=== PATIENT | male | born 1985 | race Hispanic/Latino ===

== ENCOUNTER 2017-12-17 06:35 | Emergency (ER) | payer BC, OTHER ==
[2017-12-17 06:35] VITALS: BMI 25.7
[2017-12-17 07:03] VITALS: RESP 17; O2SAT 100
[2017-12-17] MEDS ORDERED: Iohexol 240 (50 ml) PO ONE (07:32)
[2017-12-17] MEDS ORDERED: Sodium Chloride 0.9% 1,000 ML IV STA (07:32)
--- NOTE | 2017-12-17 07:49 | ED PDOC ---
HPI: Abdomen Time Seen by Provider: 12/17/17 07:08 Chief Complaint (Nursing): Abdominal Pain Chief Complaint (Provider): Abdominal Pain History Per: Patient History/Exam Limitations: no limitations Onset/Duration Of Symptoms: Hrs (3-4hrs), Intermittent Episodes Current Symptoms Are (Timing): Still Present Location Of Pain/Discomfort: Other (umbilicus area ) Quality Of Discomfort: Sharp Associated Symptoms: Nausea. denies: Fever, Diarrhea Last Bowel Movement: Today (2 bowel movement) Additional Complaint(s): 32 year old male presents to the ED complaining of abdominal pain onset 3-4 hours ago localized around the umbilicus area with associated symptoms of nausea. Reports the pain is sharp and patient feels uncomfortable. States of intermittent, chronic gastrointestinal distress and denies any evaluation ongoing for some time but the pain feels different today. Also states in the morning he had two bowel movements. Denies vomiting or diarrhea. PMD: Provider TBD Past Medical History Reviewed: Historical Data, Nursing Documentation, Vital Signs Vital Signs: Last Vital Signs Temp 97.4 F L 12/17/17 06:50 Pulse 61 12/17/17 06:50 Resp 17 12/17/17 06:50 BP 123/75 12/17/17 06:50 Pulse Ox 100 12/17/17 07:57 - Medical History PMH: Asthma - Surgical History Surgical History: No Surg Hx - Family History Family History: States: Unknown Family Hx - Social History Current smoker - smoking cessation education provided: No Drugs: Denies - Home Medications Home Medications: Ambulatory Orders Medication Instructions Recorded No Known Home Med 12/17/17 - Allergies Allergies/Adverse Reactions: Allergies Allergy/AdvReac Type Severity Reaction Status Date / Time azithromycin Allergy RASH Verified 12/17/17 07:52 Review of Systems ROS Statement: Except As Marked, All Systems Reviewed And Found Negative Gastrointestinal: Positive for: Nausea, Abdominal Pain. Negative for: Vomiting , Diarrhea Physical Exam - Reviewed Nursing Documentation Reviewed: Yes Vital Signs Reviewed: Yes - Physical Exam Appears: Positive for: Non-toxic, No Acute Distress Head Exam: Positive for: ATRAUMATIC, NORMAL INSPECTION, NORMOCEPHALIC Skin: Positive for: Normal Color, Warm, Dry Eye Exam: Positive for: EOMI, Normal appearance, PERRL ENT: Positive for: Normal ENT Inspection Neck: Positive for: Normal, Painless ROM, Supple. Negative for: Decreased ROM Cardiovascular/Chest: Positive for: Regular Rate, Rhythm. Negative for: Murmur Respiratory: Positive for: Normal Breath Sounds. Negative for: Decreased Breath Sounds, Accessory Muscle Use, Respiratory Distress Gastrointestinal/Abdominal: Positive for: Tenderness (periumbilical and RLQ) Back: Positive for: Normal Inspection. Negative for: L CVA Tenderness, R CVA Tenderness Extremity: Positive for: Normal ROM. Negative for: Tenderness, Pedal Edema, Deformity Neurologic/Psych: Positive for: Alert, Oriented (x3). Negative for: Motor/ Sensory Deficits - Laboratory Results Result Diagrams: 12/17/17 07:50 12/17/17 07:50 - ECG O2 Sat by Pulse Oximetry: 100 (RA) Pulse Ox Interpretation: Normal Medical Decision Making Medical Decision Making: Time: 730 Initial Impression: Abdominal Pain Differential Diagnosis includes but is not limited to: CT of the abdomen r/o internal hernia Initial Plan: --ABD Pelvis PO & IV Contrast [CT] --CMP --Lipase --CBC w/ differential --Normal Saline 1,000 mls/ hr --Omnipaque 240 (50ml) --Toradol 15mg --Urinalysis --Reevaluation labs reviewed and clinically unremarkable Accession No. : [id number] Patient Name / ID : MILO BASSETT / [id number] Exam Date : 12/17/2017 10:33:14 ( Approved ) Study Comment : Sex / Age : M / 32Y Creator : Edison Brown MD Dictator : Edison Borwn MD Hot Worker : Leaf Stamper : Edison Brown MD Approver2 : Report Date : 12/17/2017 10:59:44 My Comment : PROCEDURE: CT Abdomen and Pelvis with contrast HISTORY: sophie-umbilical pain, nausea COMPARISON: None. TECHNIQUE: Contrast dose: 95 mL Omnipaque 300 Radiation dose: Total exam DLP = 694.8 mGy-cm. This CT exam was performed using one or more of the following dose reduction techniques: Automated exposure control, adjustment of the mA and/or kV according to patient size, and/or use of iterative reconstruction technique. FINDINGS: LOWER THORAX: Unremarkable. LIVER: Unremarkable. No gross lesion or ductal dilatation. GALLBLADDER AND BILE DUCTS: Unremarkable. PANCREAS: Unremarkable. No gross lesion or ductal dilatation. SPLEEN: Unremarkable. ADRENALS: Unremarkable. No mass. KIDNEYS AND URETERS: Unremarkable. No hydronephrosis. No solid mass. VASCULATURE: Unremarkable. No aortic aneurysm. BOWEL: Unremarkable. No obstruction. No gross mural thickening. APPENDIX: Thick-walled appendix that fills with contrast. No periappendiceal inflammatory change. PERITONEUM: Small fat containing left inguinal hernia. No free fluid. No free air. LYMPH NODES: Unremarkable. No enlarged lymph nodes. BLADDER: Unremarkable. REPRODUCTIVE: Nonspecific 1.1 x 0.5 cm hypodensity within the central prostrate. BONES: No acute fracture. OTHER FINDINGS: None. IMPRESSION: No definite acute abdominal pelvic pathology. Thick walled appendix that fills with contrast. No periappendiceal inflammatory change. Nonspecific 1.5 x 0.5 cm hypodensity within the central prostate, possibly representing prostatic cyst, or possibly urethral diverticulum. All results discussed. 1210pm Patient feels better and RLQ is nontender. Discussed potential for very early appendicitis but without pain and currently is hungry, will DC to have strict return instructions if any pain/fever/ appetite loss/ vomiting returns. Given followup for GI given chronic intermittent GI distress and urology for prostate cyst. All questions answered and indications for return again discussed. Scribe Attestation: Documented by Latonya Baca, acting as a scribe for Nathan Smith III, DO Provider Scribe Attestation: All medical record entries made by the Scribe were at my direction and personally dictated by me. I have reviewed the chart and agree that the record accurately reflects my personal performance of the history, physical exam, medical decision making, and the department course for this patient. I have also personally directed, reviewed, and agree with the discharge instructions and disposition. Disposition - Clinical Impression Clinical Impression: Abdominal pain, Cyst of prostate - Patient ED Disposition Is Patient to be Admitted: No Counseled Patient/Family Regarding: Studies Performed, Diagnosis, Need For Followup - Disposition Referrals: Viji Rose MD [Medical Doctor] - [facility] [Outside] Mika Noland MD [Staff Provider] - Disposition Time: 12:15 Condition: STABLE Additional Instructions: Followup with GI doctor for further testing. Return to ER for any worse or new symptoms. Instructions: Acute Abdomen (Belly Pain), Adult (DC) Forms: [facility] (Danish)
[2017-12-17 07:59] LABS: BASO # 0.1 K/uL (0.0-0.2); EOS # 0.4 K/uL (0.0-0.7); EOS % 7.1 % (0.0-4.0); HEMOGLOBIN 13.9 g/dL (12.0-18.0); LYMPH % 33.8 % (20.0-40.0); MEAN CELL VOLUME 85.5 fl (80.0-94.0); MEAN CORPUSCULAR HEMOGLOBIN 28.8 pg (27.0-31.0); MEAN CORPUSCULAR HGB CONC 33.6 g/dL (33.0-37.0); MEAN PLATELET VOLUME 8.1 fl (7.2-11.7); MONO # 0.5 K/uL (0.0-0.8); MONO % 8.5 % (0.0-10.0); NEUT # 2.9 K/uL (1.8-7.0); NEUT % 49.6 % (50.0-75.0); NRBC % 0.1 % (0.0-0.0); RBC 4.82 Mil/uL (4.40-5.90); RED CELL DISTRIBUTION WIDTH 12.9 % (11.5-14.5); WHITE BLOOD COUNT 5.9 K/uL (4.8-10.8)
[2017-12-17 08:12] LABS: ALB/GLOB RATIO 1.4 (1.0-2.1); ALBUMIN 4.3 g/dL (3.5-5.0); ALT/SGPT 49 U/L (21-72); AST/SGOT 25 U/L (17-59); BLOOD UREA NITROGEN 20 mg/dl (9-20); CALCIUM 9.6 mg/dL (8.4-10.2); GFR AFRICAN-AMERICAN > 60; GFR NON-AFRICAN AMERICAN > 60; LIPASE 190 U/L (23-300)
[2017-12-17 09:41] LABS: SQUAMOUS EPITHIAL < 1 /hpf (0-5); URINE BILIRUBIN NEGATIVE (NEGATIVE); URINE BLOOD NEGATIVE (NEGATIVE); URINE CLARITY CLEAR (Clear); URINE COLOR STRAW (YELLOW); URINE GLUCOSE (UA) NEG (Normal); URINE LEUKOCYTE ESTERASE NEG Leu/uL (Negative); URINE PROTEIN NEGATIVE (NEGATIVE); URINE UROBILINOGEN 0.2-1.0 mg/dL (0.2-1.0)
[2017-12-17] MEDS ORDERED: Iohexol 300 100 ML IJ ONE (10:24)
[2017-12-17] MEDS ORDERED: Sodium Chloride 0.9% 100 ML ONE (10:25)
--- NOTE | 2017-12-17 11:01 | CT ---
PROCEDURE: CT Abdomen and Pelvis with contrast HISTORY: sophie-umbilical pain, nausea COMPARISON: None. TECHNIQUE: Contrast dose: 95 mL Omnipaque 300 Radiation dose: Total exam DLP = 694.8 mGy-cm. This CT exam was performed using one or more of the following dose reduction techniques: Automated exposure control, adjustment of the mA and/or kV according to patient size, and/or use of iterative reconstruction technique. FINDINGS: LOWER THORAX: Unremarkable. LIVER: Unremarkable. No gross lesion or ductal dilatation. GALLBLADDER AND BILE DUCTS: Unremarkable. PANCREAS: Unremarkable. No gross lesion or ductal dilatation. SPLEEN: Unremarkable. ADRENALS: Unremarkable. No mass. KIDNEYS AND URETERS: Unremarkable. No hydronephrosis. No solid mass. VASCULATURE: Unremarkable. No aortic aneurysm. BOWEL: Unremarkable. No obstruction. No gross mural thickening. APPENDIX: Thick-walled appendix that fills with contrast. No periappendiceal inflammatory change. PERITONEUM: Small fat containing left inguinal hernia. No free fluid. No free air. LYMPH NODES: Unremarkable. No enlarged lymph nodes. BLADDER: Unremarkable. REPRODUCTIVE: Nonspecific 1.1 x 0.5 cm hypodensity within the central prostrate. BONES: No acute fracture. OTHER FINDINGS: None. IMPRESSION: No definite acute abdominal pelvic pathology. Thick walled appendix that fills with contrast. No periappendiceal inflammatory change. Nonspecific 1.5 x 0.5 cm hypodensity within the central prostate, possibly representing prostatic cyst, or possibly urethral diverticulum.
[2017-12-17 12:20] VITALS: BP 128/70; PULSE 63; TEMP 98.5
== END 2017-12-17 12:20 | disposition home or self-care (01) ==
LOC: H.ER 06:35
DX: N42.83 Cyst of prostate (principal)
CPT/HCPCS: 74177; 80053; 81003; 83690; 85025; 96361; 96374; 99283; J1885; J7040; Q9966; Q9967